=== PATIENT | male | born 1945 | race Caucasian/White ===

== ENCOUNTER 2017-07-15 15:21 | Inpatient (IN) ==
[2017-07-15] MEDS ORDERED: PROMETHAZINE INJ 25 MG in SODIUM CHLORIDE 0.9% 50 ML IV PRN (15:51)
[2017-07-15] MEDS ORDERED: chlorproMAZINE INJ 25 MG in SODIUM CHLORIDE 0.9% 100 ML IV PRN (15:51)
[2017-07-15] MEDS ORDERED: TEMAZEPAM 7.5 MG CAPSULE PO PRN (15:51)
[2017-07-15] MEDS ORDERED: BENZTROPINE 2 MG/2 ML AMP IV PRN (15:51)
[2017-07-15] MEDS ORDERED: traMADol 50 MG TABLET PO PRN (15:51)
[2017-07-15] MEDS ORDERED: LACTULOSE 20 GM/30 ML UDCUP PO PRN (15:51)
[2017-07-15] MEDS ORDERED: MAGNESIUM HYDROXIDE SUSP 30 ML UDCUP PO PRN (15:51)
[2017-07-15] MEDS ORDERED: MYLANTA/LIDO VISC 2:1 300 ML BOTTLE SWISH/SPIT PRN (15:51)
[2017-07-15] MEDS ORDERED: ACETAMINOPHEN 325 MG TABLET PO PRN (15:51)
[2017-07-15] MEDS ORDERED: LOPERAMIDE 2 MG CAPSULE PO PRN ×2 (15:51)
[2017-07-15] MEDS ORDERED: chlorproMAZINE 25 MG TABLET PO PRN (15:51)
[2017-07-15] MEDS ORDERED: ALPRAZolam 0.25 MG TABLET PO PRN (15:51)
[2017-07-15] MEDS ORDERED: chlorproMAZINE INJ 50 MG in SODIUM CHLORIDE 0.9% 100 ML IV PRN (15:51)
[2017-07-15] MEDS ORDERED: MYLANTA/LIDO VISC 2:1 300 ML BOTTLE SWISH/SWAL PRN (15:51)
[2017-07-15] MEDS ORDERED: ALUMINUM/MAGNES/SIMETH MAX STR 30 ML UDCUP PO PRN (15:51)
[2017-07-15] MEDS ORDERED: ONDANSETRON 4 MG/2 ML VIAL IV PRN (15:51)
[2017-07-15] MEDS ORDERED: MAGNESIUM SULF RIDER 2 GM in PREMIX 1 EACH IV ONE (15:57)
[2017-07-15] MEDS: SODIUM CHLORIDE 0.9% 1,000 ML IV SCH (16:22)
[2017-07-15] MEDS ORDERED: MEROPENEM 1,000 MG in SODIUM CHLORIDE 0.9% 50 ML IV SCH (17:00)
[2017-07-15] MEDS: MEROPENEM 1,000 MG in SODIUM CHLORIDE 0.9% 50 ML IV SCH (17:00)
[2017-07-15] MEDS ORDERED: PROMETHAZINE 25 MG TABLET PER TUBE PRN (17:04)
[2017-07-15] MEDS: MAGNESIUM GLUCONATE 200 MG/ML 30 ML/BOTTLE PER TUBE SCH (20:04)
[2017-07-15] MEDS: diphenhydrAMINE 25 MG/10 ML UDCUP PER TUBE PRN (20:12)
[2017-07-15 22:12] LABS: Apearance,Urine Slightly Hazy (Clear); Bilirubin,Urine Negative (Negative); Blood, Urine Small mg/dL (Negative); Glucose,Urine (UA) Negative (Negative); Hyaline Casts,Urine 1 /LPF (0-3); Ketones,Urine Negative (Negative); Mucus,Urine Occasional /LPF (Occasional); Nitrite,Urine Negative (Negative); Protein,Urine 30 MG/DL; RBC,Urine 2 /HPF (0-4); Squamous Epithelial Cell,Urine Occasional /HPF (0-10); Urine Color Yellow (Yellow); Urine Specific Gravity 1.013 (1.001-1.035); Urine Urobilinogen < 2.0 EU/DL (0.2-1.0); WBC,Urine 2 /HPF (0-6)
[2017-07-16] MEDS: HYDROcod/ACETAMIN 7.5-325 MG/15 ML UDCUP PER TUBE PRN ×2 (00:33→15:25)
[2017-07-16] MEDS: MEROPENEM 1,000 MG in SODIUM CHLORIDE 0.9% 50 ML IV SCH ×3 (00:39→18:11)
[2017-07-16] MEDS: SODIUM CHLORIDE 0.9% 1,000 ML IV SCH (05:23)
[2017-07-16 06:47] LABS: Basophils # 0.1 10*3/uL (0.0-0.2); Basophils % 0.3 % (0.0-0.8); Eosinophils % 0.1 % (0.00-10.9); Hematocrit 21.2 VOL% (42.0-52.0); Hemoglobin 7.2 GM/DL (14.0-18.0); Immature Granulocytes % 4.2 %; Immature Granulocytes Absolute 0.78 #; Lymphocytes # 0.5 10*3/uL (1.4-4.0); Lymphocytes % 2.8 % (21.2-54.2); Mean Corpuscular Hemoglobin 30 PG (27-34); Mean Platelet Volume 10.3 FL (9.6-12.0); Monocytes # 0.8 10*3/uL (0.11-0.8); Monocytes % 4.4 % (1.7-12.7); Neutrophils # 16.4 10*3/uL (1.4-7.4); Neutrophils % 88.2 % (38.7-73.9); Platelet Count 338 T/CUMM (130-400); Red Blood Count 2.41 MC/CUMM (3.8-5.5); White Blood Count 18.6 T/CUMM (4-12)
[2017-07-16 07:20] LABS: Albumin 1.8 G/DL (3.4-5.0); Bilirubin,Total 0.9 MG/DL (0.2-1.0); Calcium 7.8 MG/DL (8.5-10.1); Magnesium 2.6 MG/DL (1.8-2.4); Osmolality,Calculated 268.4 MOS/KG (273-304); Potassium 3.7 MMOL/L (3.5-5.1)
[2017-07-16 07:59] LABS: Band Neutrophils 7 % (0-10); Giant Platelets Few; Hypochromasia 1+; Lymphocytes 2 % (20-55); Ovalocytes Slight; Platelet Estimate Adequate; Segmented Neutrophils 89 % (50-85); Total Cells Counted 100
[2017-07-16] MEDS ORDERED: SODIUM CHLORIDE 0.9% 250 ML IV PRN (08:40)
[2017-07-16] MEDS ORDERED: ALBUTEROL/IPRATROPIUM 3 ML NEB RESP TX PRN (08:42)
[2017-07-16] MEDS: ALBUTEROL/IPRATROPIUM 3 ML NEB RESP TX SCH ×2 (09:06→19:17)
[2017-07-16] MEDS: LANSOPRAZOLE ODT 30 MG TABLET PER TUBE SCH (10:35)
[2017-07-16] MEDS: MAGNESIUM GLUCONATE 200 MG/ML 30 ML/BOTTLE PER TUBE SCH ×2 (10:36→21:34)
[2017-07-16] MEDS: AZITHROMYCIN INJ 500 MG in SODIUM CHLORIDE 0.9% 250 ML IV SCH (11:00)
[2017-07-16] MEDS: guaiFENesin 200 MG/10 ML UDCUP PO PRN (15:25)
[2017-07-16] MEDS: diphenhydrAMINE CAP 25 MG CAPSULE PO PRN (21:38)
[2017-07-17] MEDS: MEROPENEM 1,000 MG in SODIUM CHLORIDE 0.9% 50 ML IV SCH ×3 (01:15→17:58)
[2017-07-17] MEDS: SODIUM CHLORIDE 0.9% 1,000 ML IV SCH ×2 (01:43→14:42)
[2017-07-17 05:15] LABS: Basophils # 0.1 10*3/uL (0.0-0.2); Basophils % 0.3 % (0.0-0.8); Immature Granulocytes Absolute 1.31 #; Lymphocytes # 0.5 10*3/uL (1.4-4.0); Mean Corpuscular HGB Conc 34.5 GM/DL (32-36); Mean Corpuscular Hemoglobin 31 PG (27-34); Mean Corpuscular Volume 89.2 FL (87-102); Mean Platelet Volume 9.8 FL (9.6-12.0); Monocytes # 0.7 10*3/uL (0.11-0.8); Monocytes % 2.7 % (1.7-12.7); Neutrophils # 23.4 10*3/uL (1.4-7.4); Platelet Count 350 T/CUMM (130-400); Red Blood Count 3.32 MC/CUMM (3.8-5.5); Red Cell Distribution Width 14.9 % (9.3-17.3)
[2017-07-17 05:23] LABS: Hematocrit 29.6 VOL% (42.0-52.0); Hemoglobin 10.2 GM/DL (14.0-18.0)
[2017-07-17 05:34] LABS: Albumin 1.7 G/DL (3.4-5.0); Bilirubin,Total 0.7 MG/DL (0.2-1.0); Calcium 7.8 MG/DL (8.5-10.1); Magnesium 2.4 MG/DL (1.8-2.4); Osmolality,Calculated 271.1 MOS/KG (273-304); Potassium 3.6 MMOL/L (3.5-5.1); Total Protein 4.8 G/DL (6.4-8.3)
[2017-07-17 05:40] LABS: Anisocytosis Slight; Band Neutrophils 20 % (0-10); Hypochromasia 2+; Lymphocytes 4 % (20-55); Macrocytosis Slight; Metamyelocytes 3 %; Platelet Estimate Normal; Segmented Neutrophils 71 % (50-85); Total Cells Counted 100
[2017-07-17] MEDS: ALBUTEROL/IPRATROPIUM 3 ML NEB RESP TX SCH ×2 (07:41→19:39)
[2017-07-17] MEDS ORDERED: fentaNYL 25 MCG/HR PATCH TRANSDERM SCH (09:00)
[2017-07-17] MEDS: LANSOPRAZOLE ODT 30 MG TABLET PER TUBE SCH (09:57)
[2017-07-17] MEDS: HYDROcod/ACETAMIN 7.5-325 MG/15 ML UDCUP PER TUBE PRN ×2 (09:59→17:54)
[2017-07-17] MEDS: AZITHROMYCIN INJ 500 MG in SODIUM CHLORIDE 0.9% 250 ML IV SCH (10:21)
[2017-07-17] MEDS: MAGNESIUM GLUCONATE 200 MG/ML 30 ML/BOTTLE PER TUBE SCH ×2 (10:34→21:57)
[2017-07-17] MEDS: FONDAPARINUX 2.5 MG/0.5 ML SYRINGE SUBCUT SCH (10:56)
[2017-07-17] MEDS: guaiFENesin 200 MG/10 ML UDCUP PO PRN ×2 (17:54→21:58)
[2017-07-17] MEDS: fentaNYL 25 MCG/HR PATCH TRANSDERM SCH (21:55)
[2017-07-17] MEDS: diphenhydrAMINE 25 MG/10 ML UDCUP PER TUBE PRN (22:06)
[2017-07-18] MEDS: MEROPENEM 1,000 MG in SODIUM CHLORIDE 0.9% 50 ML IV SCH ×3 (01:02→18:10)
[2017-07-18 05:30] LABS: Basophils # 0.2 10*3/uL (0.0-0.2); Basophils % 0.6 % (0.0-0.8); Eosinophils % 0.1 % (0.00-10.9); Hematocrit 32.8 VOL% (42.0-52.0); Hemoglobin 11.3 GM/DL (14.0-18.0); Immature Granulocytes % 5.2 %; Immature Granulocytes Absolute 1.66 #; Lymphocytes # 0.9 10*3/uL (1.4-4.0); Lymphocytes % 2.7 % (21.2-54.2); Mean Corpuscular HGB Conc 34.5 GM/DL (32-36); Mean Corpuscular Hemoglobin 31 PG (27-34); Mean Corpuscular Volume 89.1 FL (87-102); Monocytes # 1.2 10*3/uL (0.11-0.8); Monocytes % 3.7 % (1.7-12.7); Neutrophils # 28.2 10*3/uL (1.4-7.4); Neutrophils % 87.7 % (38.7-73.9); Platelet Count 420 T/CUMM (130-400); Red Blood Count 3.68 MC/CUMM (3.8-5.5); Red Cell Distribution Width 15.4 % (9.3-17.3); White Blood Count 32.1 T/CUMM (4-12)
[2017-07-18 05:49] LABS: Albumin 1.7 G/DL (3.4-5.0); Bilirubin,Total 0.5 MG/DL (0.2-1.0); Calcium 7.7 MG/DL (8.5-10.1); Magnesium 2.4 MG/DL (1.8-2.4); Osmolality,Calculated 272.8 MOS/KG (273-304); Potassium 3.7 MMOL/L (3.5-5.1); Total Protein 4.9 G/DL (6.4-8.3)
[2017-07-18 06:58] LABS: Band Neutrophils 16 % (0-10); Lymphocytes 3 % (20-55); Myelocytes 1 %; Segmented Neutrophils 73 % (50-85); Total Cells Counted 100; Toxic Granulation 1+
[2017-07-18 06:59] LABS: Hypochromasia 1+; Platelet Estimate Increased
[2017-07-18] MEDS: ALBUTEROL/IPRATROPIUM 3 ML NEB RESP TX SCH ×2 (07:02→19:16)
[2017-07-18] MEDS: DEXTROSE 5% NACL 0.45% 1,000 ML IV SCH (10:48)
[2017-07-18] MEDS: methylPREDNISolone SOD SUC 40 MG/1 ML VIAL IV SCH ×2 (10:49→21:04)
[2017-07-18] MEDS: FONDAPARINUX 2.5 MG/0.5 ML SYRINGE SUBCUT SCH (10:52)
[2017-07-18] MEDS: MAGNESIUM GLUCONATE 200 MG/ML 30 ML/BOTTLE PER TUBE SCH ×2 (10:56→21:04)
[2017-07-18] MEDS: LANSOPRAZOLE ODT 30 MG TABLET PER TUBE SCH (10:56)
[2017-07-18] MEDS: AZITHROMYCIN INJ 500 MG in SODIUM CHLORIDE 0.9% 250 ML IV SCH (11:44)
[2017-07-18] MEDS: VANCOMYCIN INJ 750 MG in SODIUM CHLORIDE 0.9% 150 ML IV SCH ×2 (15:37→23:26)
[2017-07-18] MEDS: diphenhydrAMINE 25 MG/10 ML UDCUP PER TUBE PRN (21:04)
[2017-07-19] MEDS: MEROPENEM 1,000 MG in SODIUM CHLORIDE 0.9% 50 ML IV SCH ×3 (01:21→17:30)
[2017-07-19 05:50] LABS: INR 1.1; PT Patient Result 11.3 SECS; Partial Thromboplastin Time 28.6 SECS (0-40)
[2017-07-19] MEDS: VANCOMYCIN INJ 750 MG in SODIUM CHLORIDE 0.9% 150 ML IV SCH ×2 (06:31→15:40)
[2017-07-19] MEDS: ALBUTEROL/IPRATROPIUM 3 ML NEB RESP TX SCH ×2 (07:31→19:44)
[2017-07-19 08:15] LABS: Basophils # 0.2 10*3/uL (0.0-0.2); Basophils % 0.7 % (0.0-0.8); Hematocrit 38.2 VOL% (42.0-52.0); Hemoglobin 13.2 GM/DL (14.0-18.0); Immature Granulocytes % 8.9 %; Immature Granulocytes Absolute 2.18 #; Lymphocytes # 1.1 10*3/uL (1.4-4.0); Lymphocytes % 4.5 % (21.2-54.2); Mean Corpuscular HGB Conc 34.6 GM/DL (32-36); Mean Corpuscular Hemoglobin 31 PG (27-34); Mean Corpuscular Volume 89.3 FL (87-102); Monocytes # 0.6 10*3/uL (0.11-0.8); Monocytes % 2.4 % (1.7-12.7); Neutrophils # 20.4 10*3/uL (1.4-7.4); Neutrophils % 83.5 % (38.7-73.9); Platelet Count 479 T/CUMM (130-400); Red Blood Count 4.28 MC/CUMM (3.8-5.5); Red Cell Distribution Width 15.7 % (9.3-17.3); White Blood Count 24.5 T/CUMM (4-12)
[2017-07-19 08:28] LABS: Calcium 8.2 MG/DL (8.5-10.1); Magnesium 2.6 MG/DL (1.8-2.4); Osmolality,Calculated 276.8 MOS/KG (273-304); Potassium 3.9 MMOL/L (3.5-5.1)
[2017-07-19 08:36] LABS: Band Neutrophils 4 % (0-10); Burr Cells Slight; Giant Platelets Few; Hypochromasia Slight; Lymphocytes 2 % (20-55); Ovalocytes Slight; Platelet Estimate Adequate; Segmented Neutrophils 89 % (50-85); Total Cells Counted 100
[2017-07-19] MEDS: FONDAPARINUX 2.5 MG/0.5 ML SYRINGE SUBCUT SCH (09:29)
[2017-07-19] MEDS: methylPREDNISolone SOD SUC 40 MG/1 ML VIAL IV SCH ×2 (09:30→21:07)
[2017-07-19] MEDS: LANSOPRAZOLE ODT 30 MG TABLET PER TUBE SCH (09:32)
[2017-07-19] MEDS: MAGNESIUM GLUCONATE 200 MG/ML 30 ML/BOTTLE PER TUBE SCH ×2 (09:36→21:10)
[2017-07-19] MEDS: DEXTROSE 5% NACL 0.45% 1,000 ML IV SCH (11:31)
[2017-07-19] MEDS: AZITHROMYCIN INJ 500 MG in SODIUM CHLORIDE 0.9% 250 ML IV SCH (11:32)
[2017-07-19] MEDS: HYDROcod/ACETAMIN 7.5-325 MG/15 ML UDCUP PER TUBE PRN (17:29)
[2017-07-19] MEDS: diphenhydrAMINE 25 MG/10 ML UDCUP PER TUBE PRN (21:10)
[2017-07-19] MEDS: VANCOMYCIN INJ 1,000 MG in SODIUM CHLORIDE 0.9% 250 ML IV SCH (23:33)
[2017-07-20] MEDS: MEROPENEM 1,000 MG in SODIUM CHLORIDE 0.9% 50 ML IV SCH ×3 (01:26→17:32)
[2017-07-20 05:53] LABS: Basophils # 0.1 10*3/uL (0.0-0.2); Basophils % 0.6 % (0.0-0.8); Hematocrit 33.6 VOL% (42.0-52.0); Hemoglobin 11.5 GM/DL (14.0-18.0); Immature Granulocytes Absolute 1.78 #; Lymphocytes # 0.7 10*3/uL (1.4-4.0); Lymphocytes % 4.1 % (21.2-54.2); Mean Corpuscular HGB Conc 34.2 GM/DL (32-36); Mean Corpuscular Hemoglobin 31 PG (27-34); Mean Corpuscular Volume 89.4 FL (87-102); Mean Platelet Volume 9.5 FL (9.6-12.0); Monocytes # 0.6 10*3/uL (0.11-0.8); Monocytes % 3.2 % (1.7-12.7); Neutrophils # 14.6 10*3/uL (1.4-7.4); Neutrophils % 82.1 % (38.7-73.9); Platelet Count 423 T/CUMM (130-400); Red Blood Count 3.76 MC/CUMM (3.8-5.5); Red Cell Distribution Width 15.8 % (9.3-17.3); White Blood Count 17.7 T/CUMM (4-12)
[2017-07-20 06:15] LABS: Band Neutrophils 3 % (0-10); Giant Platelets Few; Hypochromasia 1+; Lymphocytes 2 % (20-55); Myelocytes 1 %; Platelet Estimate Adequate; Segmented Neutrophils 89 % (50-85); Total Cells Counted 100
[2017-07-20 06:22] LABS: Albumin 1.6 G/DL (3.4-5.0); Bilirubin,Total 0.4 MG/DL (0.2-1.0); Calcium 7.9 MG/DL (8.5-10.1); Osmolality,Calculated 280.7 MOS/KG (273-304); Potassium 4.1 MMOL/L (3.5-5.1); Total Protein 5.4 G/DL (6.4-8.3)
[2017-07-20] MEDS: ALBUTEROL/IPRATROPIUM 3 ML NEB RESP TX SCH ×2 (07:30→19:31)
[2017-07-20] MEDS ORDERED: hydrALAZINE 20 MG/1 ML VIAL IV PRN (08:21)
[2017-07-20] MEDS: methylPREDNISolone SOD SUC 40 MG/1 ML VIAL IV SCH ×2 (08:45→20:56)
[2017-07-20] MEDS: amLODIPine 5 MG TABLET PO SCH (08:47)
[2017-07-20] MEDS: fentaNYL 25 MCG/HR PATCH TRANSDERM SCH (08:47)
[2017-07-20] MEDS: LANSOPRAZOLE ODT 30 MG TABLET PER TUBE SCH (08:47)
[2017-07-20] MEDS: VANCOMYCIN INJ 1,000 MG in SODIUM CHLORIDE 0.9% 250 ML IV SCH ×2 (08:50→15:51)
[2017-07-20] MEDS: FONDAPARINUX 2.5 MG/0.5 ML SYRINGE SUBCUT SCH (08:50)
[2017-07-20] MEDS: MAGNESIUM GLUCONATE 200 MG/ML 30 ML/BOTTLE PER TUBE SCH ×2 (08:52→20:55)
[2017-07-20] MEDS: DEXTROSE 5% NACL 0.45% 1,000 ML IV SCH (12:09)
[2017-07-20] MEDS: HYDROcod/ACETAMIN 7.5-325 MG/15 ML UDCUP PER TUBE PRN (18:56)
[2017-07-20] MEDS ORDERED: POLYVINYL ALCOHOL 1.4% OPH SOLN 15 ML BOTTLE BOTH EYES PRN (18:57)
[2017-07-20] MEDS: diphenhydrAMINE 25 MG/10 ML UDCUP PER TUBE PRN (20:55)
[2017-07-21] MEDS: VANCOMYCIN INJ 1,000 MG in SODIUM CHLORIDE 0.9% 250 ML IV SCH ×3 (00:42→16:17)
[2017-07-21] MEDS: MEROPENEM 1,000 MG in SODIUM CHLORIDE 0.9% 50 ML IV SCH ×3 (00:59→18:16)
[2017-07-21 04:44] LABS: Basophils # 0.1 10*3/uL (0.0-0.2); Basophils % 0.5 % (0.0-0.8); Hematocrit 32.7 VOL% (42.0-52.0); Hemoglobin 11.2 GM/DL (14.0-18.0); Immature Granulocytes % 11.4 %; Immature Granulocytes Absolute 1.25 #; Lymphocytes # 0.5 10*3/uL (1.4-4.0); Lymphocytes % 4.6 % (21.2-54.2); Mean Corpuscular HGB Conc 34.3 GM/DL (32-36); Mean Corpuscular Hemoglobin 31 PG (27-34); Mean Corpuscular Volume 89.8 FL (87-102); Mean Platelet Volume 9.4 FL (9.6-12.0); Monocytes # 0.5 10*3/uL (0.11-0.8); Monocytes % 4.8 % (1.7-12.7); Neutrophils # 8.7 10*3/uL (1.4-7.4); Neutrophils % 78.7 % (38.7-73.9); Platelet Count 402 T/CUMM (130-400); Red Blood Count 3.64 MC/CUMM (3.8-5.5); Red Cell Distribution Width 15.4 % (9.3-17.3)
[2017-07-21 05:05] LABS: Calcium 7.5 MG/DL (8.5-10.1); Potassium 4.2 MMOL/L (3.5-5.1)
[2017-07-21 05:21] LABS: Band Neutrophils 4 % (0-10); Lymphocytes 6 % (20-55); Platelet Estimate Adequate; Segmented Neutrophils 86 % (50-85); Total Cells Counted 100
[2017-07-21 05:22] LABS: Giant Platelets Few; Hypochromasia 1+; Ovalocytes Slight
[2017-07-21] MEDS: ALBUTEROL/IPRATROPIUM 3 ML NEB RESP TX SCH ×2 (07:08→19:32)
[2017-07-21] MEDS: methylPREDNISolone SOD SUC 40 MG/1 ML VIAL IV SCH ×2 (09:18→22:32)
[2017-07-21] MEDS: LANSOPRAZOLE ODT 30 MG TABLET PER TUBE SCH (09:19)
[2017-07-21] MEDS: MAGNESIUM GLUCONATE 200 MG/ML 30 ML/BOTTLE PER TUBE SCH ×2 (09:19→22:30)
[2017-07-21] MEDS: HYDROcod/ACETAMIN 7.5-325 MG/15 ML UDCUP PER TUBE PRN ×2 (09:19→22:38)
[2017-07-21] MEDS: FONDAPARINUX 2.5 MG/0.5 ML SYRINGE SUBCUT SCH (09:19)
[2017-07-21] MEDS: amLODIPine 5 MG TABLET PO SCH (09:19)
[2017-07-21] MEDS: guaiFENesin 200 MG/10 ML UDCUP PO PRN (09:20)
[2017-07-21] MEDS: DEXTROSE 5% NACL 0.45% 1,000 ML IV SCH (18:16)
[2017-07-21] MEDS: diphenhydrAMINE CAP 25 MG CAPSULE PO PRN (22:30)
[2017-07-22] MEDS: MEROPENEM 1,000 MG in SODIUM CHLORIDE 0.9% 50 ML IV SCH ×3 (01:07→16:53)
[2017-07-22] MEDS: VANCOMYCIN INJ 1,000 MG in SODIUM CHLORIDE 0.9% 250 ML IV SCH ×2 (02:54→15:55)
[2017-07-22] MEDS: ALBUTEROL/IPRATROPIUM 3 ML NEB RESP TX SCH ×2 (07:45→18:20)
[2017-07-22] MEDS: MAGNESIUM GLUCONATE 200 MG/ML 30 ML/BOTTLE PER TUBE SCH ×2 (09:11→20:22)
[2017-07-22] MEDS: FONDAPARINUX 2.5 MG/0.5 ML SYRINGE SUBCUT SCH (09:11)
[2017-07-22] MEDS: methylPREDNISolone SOD SUC 40 MG/1 ML VIAL IV SCH ×2 (09:13→20:24)
[2017-07-22] MEDS: amLODIPine 5 MG TABLET PO SCH (09:13)
[2017-07-22] MEDS: LANSOPRAZOLE ODT 30 MG TABLET PER TUBE SCH (09:13)
[2017-07-22] MEDS: guaiFENesin 200 MG/10 ML UDCUP PO PRN ×2 (11:50→16:53)
[2017-07-22] MEDS: diphenhydrAMINE CAP 25 MG CAPSULE PO PRN (20:22)
[2017-07-22] MEDS: DEXTROSE 5% NACL 0.45% 1,000 ML IV SCH (20:22)
[2017-07-22] MEDS: HYDROcod/ACETAMIN 7.5-325 MG/15 ML UDCUP PER TUBE PRN (20:23)
[2017-07-22] MEDS ORDERED: VANCOMYCIN INJ 1,000 MG in SODIUM CHLORIDE 0.9% 250 ML IV SCH (21:00)
[2017-07-23] MEDS: MEROPENEM 1,000 MG in SODIUM CHLORIDE 0.9% 50 ML IV SCH ×2 (00:49→08:21)
[2017-07-23] MEDS ORDERED: HEPARIN LOCK FLUSH 500 UNIT/5 ML SYRINGE IV ONE ×2 (01:41→09:55)
[2017-07-23 03:58] LABS: Basophils # 0.1 10*3/uL (0.0-0.2); Basophils % 0.5 % (0.0-0.8); Hematocrit 33.5 VOL% (42.0-52.0); Hemoglobin 11.6 GM/DL (14.0-18.0); Immature Granulocytes % 13.7 %; Immature Granulocytes Absolute 2.07 #; Lymphocytes # 0.6 10*3/uL (1.4-4.0); Lymphocytes % 4.2 % (21.2-54.2); Mean Corpuscular HGB Conc 34.6 GM/DL (32-36); Mean Corpuscular Hemoglobin 31 PG (27-34); Mean Corpuscular Volume 89.1 FL (87-102); Mean Platelet Volume 9.3 FL (9.6-12.0); Monocytes # 0.6 10*3/uL (0.11-0.8); Monocytes % 3.7 % (1.7-12.7); Neutrophils # 11.7 10*3/uL (1.4-7.4); Neutrophils % 77.9 % (38.7-73.9); Platelet Count 451 T/CUMM (130-400); Red Blood Count 3.76 MC/CUMM (3.8-5.5); Red Cell Distribution Width 15.2 % (9.3-17.3); White Blood Count 15.1 T/CUMM (4-12)
[2017-07-23 04:39] LABS: Albumin 1.9 G/DL (3.4-5.0); Bilirubin,Total 0.6 MG/DL (0.2-1.0); Calcium 8.2 MG/DL (8.5-10.1); Magnesium 2.3 MG/DL (1.8-2.4); Potassium 4.3 MMOL/L (3.5-5.1); Total Protein 5.2 G/DL (6.4-8.3)
[2017-07-23 05:02] LABS: Band Neutrophils 6 % (0-10); Giant Platelets Few; Hypochromasia 1+; Lymphocytes 4 % (20-55); Metamyelocytes 1 %; Myelocytes 1 %; Platelet Estimate Adequate; Segmented Neutrophils 83 % (50-85); Total Cells Counted 100
[2017-07-23] MEDS: ALBUTEROL/IPRATROPIUM 3 ML NEB RESP TX SCH (08:09)
[2017-07-23] MEDS: fentaNYL 25 MCG/HR PATCH TRANSDERM SCH (08:21)
[2017-07-23] MEDS: LANSOPRAZOLE ODT 30 MG TABLET PER TUBE SCH (08:21)
[2017-07-23] MEDS: amLODIPine 5 MG TABLET PO SCH (08:21)
[2017-07-23 08:22] VITALS: BP 169/76
[2017-07-23] MEDS: methylPREDNISolone SOD SUC 40 MG/1 ML VIAL IV SCH (08:22)
[2017-07-23] MEDS: FONDAPARINUX 2.5 MG/0.5 ML SYRINGE SUBCUT SCH ×2 (08:22→08:36)
[2017-07-23] MEDS: MAGNESIUM GLUCONATE 200 MG/ML 30 ML/BOTTLE PER TUBE SCH (08:24)
== END 2017-07-23 11:08 | disposition home or self-care (01) | DRG 193 ==
LOC: N.4E 15:29
PROVIDERS: ADMIT Specialist; ATTEND Specialist